=== PATIENT | female | born 1980 | race Caucasian/White ===

== ENCOUNTER → 2022-02-08 13:30 | Outpatient (CLI) | payer OTHER, SELFPAY ==
--- NOTE | ~2022-02-08 | XR_ITS ---
EXAMINATION: XR sacrum coccyx min 2V INDICATION: Sacrococcygeal disorders not elsewhere classified TECHNIQUE: Three views of the sacrum and coccyx are obtained. COMPARISON: None available FINDINGS: Bone alignment is normal. No fracture is identified. The visualized lumbar spine is unremar kable. IMPRESSION: 1. No acute osseous abnormality. Reviewed, dictated and finalized at location F.
== END ==
PROVIDERS: PCP Family Medicine; Visit Provider Family Medicine
DX: M53.3 Sacrococcygeal disorders, not elsewhere classified (principal)
CPT/HCPCS: 72220

== ENCOUNTER 2024-03-13 06:46 | Outpatient (CLI) | payer OTHER, SELFPAY ==
--- NOTE | ~2024-03-13 | MR_ITS ---
MRI of the lumbar spine Clinical History: Radiculopathy Technique: Axial T2-weighted images, and sagittal T1-weighted, T2-weighted, and and T2 fat-sat images were acquired. Findings: There is no fracture or subluxation of lumbar spine. Vertebral bodies maintain normal heigh t and alignment. There are minimal type I Modic changes about the L5-S1 disc space. No other bone mar row signal abnormality seen. At L1-L2, L2-L3, L3-L4, intervertebral discs maintain normal signal and position. There are moderate facet joint degenerative changes at these levels. No spinal canal stenosis or neural foraminal narrow ing at these levels. At L4-L5, there is mild disc desiccation, with minimal disc bulge and moderate facet arthropathy. No central canal stenosis. There is minimal bilateral neural foraminal narrowing. At L5-S1, there is moderate degenerative disc narrowing. There is mild disc bulge and moderate facet arthropathy. No central canal stenosis. There is minimal right neural foraminal narrowing. Left neura l foramen preserved. Paravertebral soft tissues are unremarkable. Impression: Minimal degenerative spondylosis, as above. Reviewed, dictated and finalized at location M. Impression: Minimal degenerative spondylosis, as above.
== END 2024-03-13 06:47 | disposition home or self-care (01) ==
PROVIDERS: PCP Family Medicine; Visit Provider Orthopaedic Surgery
DX: M47.896 Other spondylosis, lumbar region (principal)
CPT/HCPCS: 72148

== ENCOUNTER 2024-05-03 11:00 | Outpatient (RCR) | payer OTHER, SELFPAY ==
--- NOTE | 2024-03-26 16:19 | OPREHPOC ---
Outpatient Therapy Plan of Care This is a Multidisciplinary Plan of Care that may contain components documented by all disciplines (PT, OT, and ST.) PT Problem 1 PT Problem #1 Knowledge Deficit PT Goal 1 Goal *indep with HEP * correct body mechanics with fitness exercises and lifting from floor Target Visit 8 PT Problem 2 PT Problem #2 Pain PT Goal 1 Goal 1* pt report pain at worst rating of 2/10 2* radicular pain into L LE to knee at worst 3* self assessment Oswestry rating of 20% limitation in activity 4* pt report with sleeping, awaken 1x/night due to back pain Target Visit 8 PT Problem 3 PT Problem #3 Impaired Strength PT Goal 1 Goal increase strength of trunk and hips to improve stability to spine 1* single leg standing L x 12 seconds with good stability 2* pt ambulate 150' with correct R heel strike and weight shift onto foot 3* pt perform 15 reps of sitting ball exercises with good trunk stability Target Visit 10
--- NOTE | 2024-03-26 16:19 | PTOPEVAL1 ---
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 wants to return to a fitness program. Reported Pain Level Pain Score Self Report Additional Pain Score Comments pain range in the past week 2-4/10; ache sensation, cannot straighten back up all way; numbness intermittent into L big toe; L knee and hip pain also--feel like not always from back increase pain: running, walking, activity decrease pain: sit/rest, heat, stretching, diclofenac, home stim unit reported tolerances 1/2 to 1 mile; sleeping awaken 2x/night due to pain--usually sleep on side with pillow between knees/ankles Assessment PT Clinical Summary Nilda has the diagnosis of lumbar radiculopathy. She reports onset about 1 year ago with increase in fitness and running. MRI reports changes in lumbar spine. Self assessment Oswestry rating of 30% liimitation in activity level. Pain limits her walking and sleeping tolerances. With the evaluation: pain is increased with standing trunk flexion and prone knee flexion L stretch; palpation there is tenderness over L mid to distal ITB and L sacral area, and tightness over thoracic and lumbar spine; flexibility of hips is WNL and balanced R/L-- only report of tightness with supine L hip IR stretch; weakness over L LE with single leg standing of 3 seconds and unstable; with walking, she has lateral wegiht shift onto R foot; Skilled PT services are
--- NOTE | 2024-05-03 11:57 | PTOPDC ---
Assessment and note entered by Feli Sheffield, PT Discharge Report Assessment Status Discharge Diagnosis lumbar radiculopathy Onset about one year ago Subjective Information back was feeling better, then with doing more at the gym, pain increased, so back to just doing core and ab work; have been taking the prescription meds regularly now to make it through the day; going to keep up with the exercises and follow back up with Dr Paniagua. Reported Pain Level Pain Score Self Report Additional Pain Score Comments pain range in the past week 1-4/10; L radicular constant to hip and knee, with intermittent numbness in foot and toe taking the prescription meds 2x/day due to more pain; with sleeping, awakened due to pain 2x/night; reinforced use of home stim, heat, cupping, IASTM to manage her pain. Assessment PT Clinical Summary Nilda has received 8 PT sessions. Compared to the initial evaluation: pain rating from 2-4/10 to 1-4/10; radicular pain is the same- -to L knee constant and intermittent numbness in L foot; self assessment Oswestry rating form 30 to 32% limitation; reported sleeping, awaken 2x/ night due to pain; strength of trunk and hips has improved; education completed for HEP, posture and pain management; The goals for education and strength were achieved pain is about the same and goals not achieved. Discharge PT. She is to continue with her HEP. Plan of Care PT Services Indicated No
== END 2024-05-03 13:24 | disposition home or self-care (01) ==
LOC: ANHPT 11:00
PROVIDERS: PCP Family Medicine; Visit Provider Orthopaedic Surgery
DX: M54.50 Low back pain, unspecified (principal); M54.16 Radiculopathy, lumbar region
CPT/HCPCS: 97012; 97014; 97110; 97140; 97161; 97530; G0283